=== PATIENT | female | born 1960 | race Caucasian/White ===

== ENCOUNTER 2018-04-04 12:42 | Observation (INO) | payer OTHER, MEDICAID ==
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
[2018-04-04] MEDS ORDERED: ONDANSETRON 4 MG/2 ML VIAL IVP PRN (14:54)
[2018-04-04] MEDS ORDERED: ONDANSETRON DISINTEGRATING 4 MG TAB PO PRN (14:54)
[2018-04-04] MEDS ORDERED: ACETAMINOPHEN 325 MG TAB PO PRN (14:54)
[2018-04-04] MEDS ORDERED: NS 1,000 ML IV SCH (15:00)
[2018-04-04 15:37] LABS: PLATELET COUNT 365 10^3/uL (150-400)
[2018-04-04 15:47] LABS: INR 0.97 (0.83-1.16); PROTIME(PATIENT) 13.1 SEC (12.0-15.0)
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
[2018-04-04] MEDS: HYDROCODONE/APAP 5/325 TAB PO PRN ×2 (16:11→19:45)
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
[2018-04-05] MEDS: HYDROCODONE/APAP 5/325 TAB PO PRN ×2 (02:34→12:34)
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
[2018-04-05 11:35] LABS: PLATELET COUNT 290 10^3/uL (150-400)
[2018-04-05 11:37] VITALS: BP 131/72
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
--- NOTE | 2018-04-05 12:10 | ASMTLACE ---
LACE Length of stay for Answers: Less than 1 day current admission Acuity / Level of Answers: No Care: Did the patient have an inpatient admission? # of Emergency department Answers: 1-2 visits in the last 6 months Score: 1 Date Signed: 04/05/2018 12:10 PM Electronically Signed By:Loly Trejo RN
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
== END 2018-04-05 12:45 | disposition home or self-care (01) ==
LOC: EDUNIT# → F2N 15:31
PROVIDERS: ADMIT Neurological Surgery; ATTEND Neurological Surgery
DX: S06.5X9A Traumatic subdural hemorrhage with loss of consciousness of unspecified duration, initial encounter (principal); S06.6X9A Traumatic subarachnoid hemorrhage with loss of consciousness of unspecified duration, initial encounter; S12.500A Unspecified displaced fracture of sixth cervical vertebra, initial encounter for closed fracture; V89.2XXA Person injured in unspecified motor-vehicle accident, traffic, initial encounter; Y92.410 Unspecified street and highway as the place of occurrence of the external cause; Y93.9 Activity, unspecified; Y99.9 Unspecified external cause status
CPT/HCPCS: 70450; 72125; 73030; 92523; 96374; 97161; 97165; 97535; 99285; G0378; J2405